=== PATIENT | female | born 1995 ===

== ENCOUNTER 2017-08-16 02:46 | Inpatient (IN) | payer MEDICAID ==
[2017-08-16 03:10] VITALS: BMI 21.1
[2017-08-16] MEDS ORDERED: Penicillin G 5 Million Unit Vial IVPB ONE (03:14)
[2017-08-16] MEDS ORDERED: Lactated Ringer's 1,000 ML IV SCH (03:15)
--- NOTE | 2017-08-16 04:04 | OBHP ---
Datetime: 08/16/2017 02:55 IP Adm Impression: Active labor IP Adm Impression Other: No Care. LMP - Unsure IP Admit Plan: Admit to unit; Initiate labor protocol Admit Comment, IP Provider: 22yo with Unsure LMP and Limited care presents here today with painful uterine contractions which started @ 1am. She denies LOF but had seen some show and felt movements. Pt had only had one encounter where labs and Sonogram requested had not be en done. She is unsure of her LMP. PMHx: Unremarkable. OBHx: , X1 SHx; No Toxic Habits X3 O: Well ABD: soft, NT, BS- present TOCO: Q 2-3 FHR- category 1, Cx: 8/100/-2, vtx Assessment: IUP in Active labor NST Reactive. Plan: Admit to LND. Prepare for vaginal delivery labs Pelvic Type - PN: Adequate Extremities - PN: Normal Abdomen - PN: Normal Back - PN: Normal Breast - PN: Normal Lungs - PN: Normal Heart - PN: Normal Thyroid - PN: Normal Neurologic - PN: Normal HEENT - PN: Normal General - PN: Normal Presentation-Admit: Vertex FHR - Baseline A Provider: 130 Membranes, Provider: Intact Comments, ACOG Physical Exam: Abd: Soft, NT, BS- present. Gestation - Est Wks by US: 35.0 EGA AdmitDate IP: 35.0 Vital Signs Provider: Reviewed IP Chief Complaint: Uterine contractions; Maternal discomfort NICHD Variability Prov Fetus A: Moderate 6-25bpm NICHD Accel Fetus A IP Provider: [id number] FHR Category Provider Fetus A: Category I NICHD Decel Fetus A IP Provider: None Dilatation, Provider: 8 Effacement, Provider: 100 Station, Provider: -2 Genitourinary Exam: Normal DTRs - PN: Normal
[2017-08-16 04:06] LABS: BASO # 0.1 K/uL (0.0-0.2); BASO % 0.7 % (0.0-2.0); EOS % 0.3 % (0.0-4.0); HEMOGLOBIN 11.7 g/dL (11.0-16.0); LYMPH # 2.6 K/uL (1.0-4.3); LYMPH % 22.8 % (20.0-40.0); MEAN CORPUSCULAR HEMOGLOBIN 28.6 pg (27.0-31.0); MEAN CORPUSCULAR HGB CONC 33.6 g/dL (33.0-37.0); MEAN PLATELET VOLUME 12.9 fL (7.2-11.7); MONO # 0.6 K/uL (0.0-0.8); MONO % 5.5 % (0.0-10.0); NEUT # 8.1 K/uL (1.8-7.0); NEUT % 70.7 % (50.0-75.0); NRBC % 0.1 % (0.0-2.0); RBC 4.09 Mil/uL (3.80-5.20); RED CELL DISTRIBUTION WIDTH 15.2 % (11.5-14.5); WHITE BLOOD COUNT 11.4 K/uL (4.8-10.8)
[2017-08-16 04:09] LABS: SQUAMOUS EPITHIAL 15 /hpf (0-5); URINE BACTERIA RARE (<OCC); URINE BILIRUBIN NEGATIVE (NEGATIVE); URINE BLOOD 2+ (NEGATIVE); URINE CLARITY Hazy (Clear); URINE COLOR Red (YELLOW); URINE GLUCOSE (UA) NORMAL (Normal); URINE LEUKOCYTE ESTERASE 2+ Leu/uL (Negative); URINE NITRATE NEGATIVE (NEGATIVE); URINE PROTEIN NEGATIVE (NEGATIVE); URINE UROBILINOGEN NORMAL mg/dL (0.2-1.0)
[2017-08-16 04:10] LABS: BLOOD UREA NITROGEN 13 mg/dL (7-17); GFR AFRICAN-AMERICAN > 60; GFR NON-AFRICAN AMERICAN > 60
[2017-08-16 04:11] LABS: ALB/GLOB RATIO 0.9 (1.0-2.1); ALBUMIN 3.6 g/dL (3.5-5.0); ALT/SGPT 21 U/L (9-52); AST/SGOT 27 U/L (14-36); CALCIUM 9.2 mg/dl (8.6-10.4)
[2017-08-16 04:41] LABS: HEPATITIS B SURFACE AG Negative (NEGATIVE)
[2017-08-16] MEDS ORDERED: Oxycodone/Acetaminophen 5/325 mg Tab PO PRN (11:19)
[2017-08-16] MEDS ORDERED: Benzocaine/Menthol 20%-0.5% Topical Spray (60 ml) TOP PRN (11:19)
[2017-08-16 14:37] LABS: BARBITURATES, UR NEGATIVE (NEGATIVE); BENZODIAZEPINES, UR NEGATIVE (NEGATIVE); OPIATES, UR NEGATIVE (NEGATIVE); PHENCYCLIDINE, UR NEGATIVE (NEGATIVE)
[2017-08-16 17:00] LABS: RAPID PLASMA REAGIN NONREACTIVE (NONREACTIVE)
--- NOTE | 2017-08-17 08:37 | OBPPN ---
Datetime: 08/17/2017 08:34 PP Pain Prov: Within normal limits PP Nausea Prov: Denies PP Flatus Prov: Yes PP BM Prov: No PP Breasts Prov: Normal PP Heart Prov: Normal PP Lungs Prov: Normal PP Abdomen/Uterus Prov: Normal PP Lochia Prov: Normal PP Vulva/Perineum Prov: Normal PP CVA Tenderness Prov: Normal PP Extremities Prov: Normal PP C/S Incision Prov: Not Applicable PP Progress Prov: Normal PP Impression Prov: Normal progression PP Plan Prov: Continue present management PP Progress Note Prov: pt seen adn examined and reports pain controlled with medicain. pt is tolerat ing diet without nause, vomiting, ambuating, voiding, passing flatus, denies any fever, chills, cp, s ob, lightheadness, headahces. pt is . VSS PE GEN NAD< AAO x 3 RESP: CTAB?L CVS: RRR< +S1/S2 ABD: Soft, NT/ND, +BS, no guarding, no rebound tendneren no rigidty, FUNDUS: FIrm, at level of umbilucsi VE: Minimal lochia, non fouls smelling EXT: no calf tenderness, negative italia's sign A/P s/p PPD #1 doing well -f/u am lab -pain manamgnet -encourage breast feedign adn ambaution IP PP Procedures: None Vital Signs Provider PP: Reviewed; Within Normal Limits
[2017-08-17 08:48] LABS: BASO # 0.1 K/uL (0.0-0.2); BASO % 0.6 % (0.0-2.0); EOS # 0.1 K/uL (0.0-0.7); EOS % 0.8 % (0.0-4.0); LYMPH # 2.9 K/uL (1.0-4.3); LYMPH % 28.2 % (20.0-40.0); MEAN CORPUSCULAR HEMOGLOBIN 28.7 pg (27.0-31.0); MEAN CORPUSCULAR HGB CONC 33.4 g/dL (33.0-37.0); MEAN PLATELET VOLUME 11.9 fL (7.2-11.7); MONO # 0.6 K/uL (0.0-0.8); NEUT # 6.6 K/uL (1.8-7.0); NEUT % 64.4 % (50.0-75.0); RBC 3.82 Mil/uL (3.80-5.20); RED CELL DISTRIBUTION WIDTH 15.3 % (11.5-14.5); WHITE BLOOD COUNT 10.2 K/uL (4.8-10.8)
[2017-08-17] MEDS ORDERED: Influenza Vaccine 60 mcg/0.5 mL SYR (4YR UP) IM ONE (09:20)
[2017-08-17 16:21] VITALS: O2SAT 99
[2017-08-18 08:37] VITALS: BP 93/60; PULSE 78; RESP 18
--- NOTE | 2017-08-18 09:16 | OBPPN ---
Datetime: 08/18/2017 09:15 PP Pain Prov: Within normal limits PP Nausea Prov: Denies PP Flatus Prov: Yes PP BM Prov: Yes PP Breasts Prov: Normal PP Heart Prov: Normal PP Lungs Prov: Normal PP Abdomen/Uterus Prov: Normal PP Lochia Prov: Normal PP Vulva/Perineum Prov: Normal PP CVA Tenderness Prov: Normal PP Extremities Prov: Normal PP C/S Incision Prov: Not Applicable PP Progress Prov: Normal PP Impression Prov: Normal progression PP Plan Prov: Continue present management PP Progress Note Prov: pt seen and examined and reports pain controlled with medication. pt is terra ating diet without nausea, vomiting, ambuating, voiding, passing flatus, denies any fever, chills, cp , sob, lightheadness, headahces. pt is . VSS PE GEN NAD< AAO x 3 RESP: CTAB?L CVS: RRR< +S1/S2 ABD: Soft, NT/ND, +BS, no guarding, no rebound tendneren no rigidty, FUNDUS: FIrm, below level of umbilcus VE: Minimal lochia, non fouls smelling EXT: no calf tenderness, negative italia's sign A/P s/p PPD #2 doing well -dc home -f/u clinic 6 weeks, precautions given IP PP Procedures: None Vital Signs Provider PP: Reviewed; Within Normal Limits
--- NOTE | 2017-08-18 09:19 | OBDCSUM ---
Datetime: 08/18/2017 08:22 Discharged to, Provider: Home Follow up at, Provider: Clinic Disch Instr Activity: Normal activity Disch Instr Diet: Regular Discharge Instructions, Provider: Routine instructions given Discharge Diagnosis, Provider: Term Delivered Discharge Time: 08/18/2017 10:00 Follow up in weeks, Provider: 6 weeks Disch Referrals: None Contraception discussed, Prov: Yes Disch Activity Restrictions: No exercising; No lifting; No driving; Minimize walking; Minimize stair -climbing; No sexual activity; Nothing in vagina - [place], tampons, douche Contraception after Delivery: Not Planning to Use
[2017-08-18 13:30] VITALS: TEMP 98.1
== END 2017-08-18 09:29 | disposition home or self-care (01) | DRG 775 ==
LOC: C.EROB 02:46 → C.4D 03:24 → EDBD 03:24 → C.4M 05:55
PROVIDERS: ADMIT Obstetrics & Gynecology; ATTEND Obstetrics & Gynecology
PROC: 10E0XZZ Delivery of Products of Conception, External Approach (ICD-10-PCS; principal; 2017-08-16)
DX: O62.3 Precipitate labor (principal); Z37.0 Single live birth; Z3A.35 35 weeks gestation of pregnancy